=== PATIENT | female | born 1985 | race Caucasian/White ===

== ENCOUNTER 2016-07-20 20:57 | Emergency (ER) | payer MEDICARE | END 2016-07-20 23:36 | disposition home or self-care (01) | LOC: ER 20:57 | PROC: 3E0234Z Introduction of Serum, Toxoid and Vaccine into Muscle, Percutaneous Approach (ICD-10-PCS; principal; 2016-07-20) | DX: S81.812A Laceration without foreign body, left lower leg, initial encounter (principal); W25.XXXA Contact with sharp glass, initial encounter; Z23 Encounter for immunization; F17.210 Nicotine dependence, cigarettes, uncomplicated | CPT/HCPCS: 12001; 73590; 90471; 90715; 99070; 99283-25 ==